=== PATIENT | female | born 1990 | race Caucasian/White ===

== ENCOUNTER 2016-07-21 20:25 | Emergency (ER) | payer MEDICAID ==
[~2016-07-21] VITALS: Ht 172.7 cm; Wt 70.3 kg
[~2016-07-21 20:25] MED LIST: CIPRO 500MG TA500 MG PO
--- NOTE | 2016-07-21 20:45 | Emergency Room Report ---
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 N Clinical Suspician of Infection? N Mental Status: 1 - Regular (Normal Baseline) Sepsis Risk:Low Sepsis Risk Have you (or family members/close friends) recently traveled outside the [place]? N If Yes, where/when: Have you had exposure to infectious disease within the past month? N TB? Other? Specify: Source patient, RN notes reviewed, family, old records Exam Limitations no limitations Comment slipped and fell on coccyx today with pain zoraida with sitting Cardiac Chest Pain Chest pain indicative of cardiac No Timing/Duration this evening Severity moderate ALLERGIES Coded Allergies: clindamycin (Mild, 07/21/16) codeine (Mild, 07/21/16) Home Medications Reported Medications No Known Home Medications History Medical History General CAD? No Angina: No MT: No Hypertension? No Hyperlipidemia? No CHF? No DVT? No PE? No COPD? No Asthma? No Anemia? No GERD? No Gastric ulcers? No GI Bleed? No Hernia? No Thyroid Problems? No Hypothyroidism? No CVA? No Seizures? No Diabetes? No Renal Insuffiency? No End Stage Renal Disease? No UTI? No Stones? No BPH? No GB Disease: No Nephritic Syndrome? No Asplenia? No Hepatitis? No Sickle Cell Disease? No Arthritis? No Migraines? No Cataracts? No Glaucoma? No MRSA? No HIV? No TB? No Anxiety? No Depression? No Cancer? No More? 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 Respiratory denies cough, denies shortness of breath, denies wheezing Cardiovascular denies chest pain, denies syncope Gastrointestinal denies abdominal pain, denies diarrhea, denies vomiting Genitourinary denies: dysuria, frequency, hesitancy, hematuria. Musculoskeletal see HPI, denies back pain, denies joint pain, denies joint swelling, denies neck pain, other Skin denies rash Psychiatric/Neurological denies headache, denies seizure Physical Exam Vital Signs Vital Signs Date Time Temp Pulse Resp B/P Pulse O2 O2 Flow FiO2 Ox Delivery Rate 07/21 2027 98.1 110 16 141/87 98 - WBC >12,000 or <4,000 or 10% bands? 2 or more SIRS Criteria Met? B/P:141/87 MAP:105 Creatinine >2.0? UA output<0.5ml/kg/hr for 2 hrs? Platelet count >100,000? Lactate >2.0mmol/1? INR >1.2 or PTT > than 60 sec? Evidence of Organ Dysfunction? Provider documented clinical suspician of infection? N Sepsis Criteria Count: 1 Sepsis Risk: Low Sepsis Risk General Appearance no apparent distress Eye Exam - bilateral eye PERRL, bilateral eye EOMI Ear, Nose, Throat normal ENT inspection Neck supple Respiratory Status No: respiratory distress. 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 No Results/Orders Orders Procedure Date/time Status SACRUM 2 VIEW 07/21 2051 Active PELVIS AP ONLY 07/21 2044 Active COCCYX 2 VIEW 07/21 2032 Active XRAY/CT/US XRAY/CT/US XRAY pelvis, coccyx XR interpretation by reviewed by me Xray Results no fracture seen Departure Departure Time of Disposition 2126 Disposition DC Home or Self Care(routine) Clinical Impression Primary Impression: Coccygeal contusion Qualifiers: Encounter type: initial encounter Qualified Code: S30.0XXA - Contusion of lower back and pelvis, initial encounter Condition STABLE Patient Instructions DI for Coccydynia Additional Instructions ice and cushion and use meds and see pcp for follow up Discharge Counseling Counseled pt/family regarding diagnosis, test results, medications/RX, follow up needs Prescriptions Current Visit Scripts Meloxicam (Mobic 15MG) 15 MG PO DAILY #10 TAB ED Critical Care Critical Care No at 2135
--- NOTE | 2016-07-21 20:45 | Emergency Room Report ---
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 N Clinical Suspician of Infection? N Mental Status: 1 - Regular (Normal Baseline) Sepsis Risk:Low Sepsis Risk Have you (or family members/close friends) recently traveled outside the [place]? N If Yes, where/when: Have you had exposure to infectious disease within the past month? N TB? Other? Specify: Source patient, RN notes reviewed, family, old records Exam Limitations no limitations Comment slipped and fell on coccyx today with pain zoraida with sitting Cardiac Chest Pain Chest pain indicative of cardiac No Timing/Duration this evening Severity moderate ALLERGIES Coded Allergies: clindamycin (Mild, 07/21/16) codeine (Mild, 07/21/16) Home Medications Reported Medications No Known Home Medications History Medical History General CAD? No Angina: No HI: No Hypertension? No Hyperlipidemia? No CHF? No DVT? No PE? No COPD? No Asthma? No Anemia? No GERD? No Gastric ulcers? No GI Bleed? No Hernia? No Thyroid Problems? No Hypothyroidism? No CVA? No Seizures? No Diabetes? No Renal Insuffiency? No End Stage Renal Disease? No UTI? No Stones? No BPH? No GB Disease: No Nephritic Syndrome? No Asplenia? No Hepatitis? No Sickle Cell Disease? No Arthritis? No Migraines? No Cataracts? No Glaucoma? No MRSA? No HIV? No TB? No Anxiety? No Depression? No Cancer? No More? 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 Respiratory denies cough, denies shortness of breath, denies wheezing Cardiovascular denies chest pain, denies syncope Gastrointestinal denies abdominal pain, denies diarrhea, denies vomiting Genitourinary denies: dysuria, frequency, hesitancy, hematuria. Musculoskeletal see HPI, denies back pain, denies joint pain, denies joint swelling, denies neck pain, other Skin denies rash Psychiatric/Neurological denies headache, denies seizure Physical Exam Vital Signs Vital Signs Date Time Temp Pulse Resp B/P Pulse O2 O2 Flow FiO2 Ox Delivery Rate 07/21 2027 98.1 110 16 141/87 98 - WBC >12,000 or <4,000 or 10% bands? 2 or more SIRS Criteria Met? B/P:141/87 MAP:105 Creatinine >2.0? UA output<0.5ml/kg/hr for 2 hrs? Platelet count >100,000? Lactate >2.0mmol/1? INR >1.2 or PTT > than 60 sec? Evidence of Organ Dysfunction? Provider documented clinical suspician of infection? N Sepsis Criteria Count: 1 Sepsis Risk: Low Sepsis Risk General Appearance no apparent distress Eye Exam - bilateral eye PERRL, bilateral eye EOMI Ear, Nose, Throat normal ENT inspection Neck supple Respiratory Status No: respiratory distress. 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 No Results/Orders Orders Procedure Date/time Status SACRUM 2 VIEW 07/21 2051 Active PELVIS AP ONLY 07/21 2044 Active COCCYX 2 VIEW 07/21 2032 Active XRAY/CT/US XRAY/CT/US XRAY pelvis, coccyx XR interpretation by reviewed by me Xray Results no fracture seen Departure Departure Time of Disposition 2126 Disposition DC Home or Self Care(routine) Clinical Impression Primary Impression: Coccygeal contusion Qualifiers: Encounter type: initial encounter Qualified Code: S30.0XXA - Contusion of lower back and pelvis, initial encounter Condition STABLE Patient Instructions DI for Coccydynia Additional Instructions ice and cushion and use meds and see pcp for follow up Discharge Counseling Counseled pt/family regarding diagnosis, test results, medications/RX, follow up needs Prescriptions Current Visit Scripts Meloxicam (Mobic 15MG) 15 MG PO DAILY #10 TAB ED Critical Care Critical Care No at 2137
[2016-07-21] MEDS ORDERED: MOBIC15 MG PO (21:32)
[2016-07-21 21:34] VITALS: BP 141/87
--- NOTE | 2016-07-22 06:12 | RADIOLOGY REPORT PS360 ---
PELVIS AP ONLY HISTORY: Pain following injury fall ORDERING PHYSICIAN: Ruth Corley MD PATIENT AGE: 26 years COMPARISON: None FINDINGS: A faint lucency overlies lower aspect of the sacrum which could be due to mock line from overlying bowel nondisplaced fracture. CT may confirm. Bilateral tubal ligation clips are present. Otherwise negative. IMPRESSION: Possible sacral fracture
--- NOTE | 2016-07-22 06:13 | RADIOLOGY REPORT PS360 ---
COCCYX 2 VIEW HISTORY: Posttraumatic pain FALL ORDERING PHYSICIAN: Ruth Corley MD PATIENT AGE: 26 years COMPARISON: None FINDINGS: There is a pain curvilinear lucency noted over the lower sacrum on the frontal view. This could be due to a nondisplaced fracture versus mock line from overlying bowel gas. CT may confirm the absence or presence of fracture. Normal alignment on the lateral view. Otherwise negative. The coccyx has an unremarkable appearance. IMPRESSION: Possible nondisplaced sacral fracture
--- NOTE | 2016-07-22 06:14 | RADIOLOGY REPORT PS360 ---
SACRUM 2 VIEW CLINICAL INDICATION: Pain following injury FALL ORDERING PHYSICIAN: Ruth Corley MD PATIENT AGE: 26 years COMPARISON: None FINDINGS: On the coccyx images there is a question of a nondisplaced lower sacral fracture. Stool disc ureters is area on the sacral views. No displaced fractures evident. IMPRESSION: Possible nondisplaced sacral fracture best seen on the coccyx images otherwise negative. CT may confirm
== END 2016-07-21 21:55 | disposition home or self-care (01) ==
LOC: ER 20:25
DX: S30.0XXA Contusion of lower back and pelvis, initial encounter (principal); W01.0XXA Fall on same level from slipping, tripping and stumbling without subsequent striking against object, initial encounter; Y92.010 Kitchen of single-family (private) house as the place of occurrence of the external cause